=== PATIENT | female | born 1955 | race Caucasian/White ===

== ENCOUNTER 2025-02-16 09:36 | Emergency (ER) | payer BC ==
[~2025-02-16] VITALS: Ht 149.9 cm; Wt 56.7 kg
[2025-02-16] MEDS ORDERED: LIDOCAINE 5% (PATCH) 1 EA PATCH TP ONE (10:05)
[2025-02-16] MEDS ORDERED: KETOROLAC TROMETHAMINE 15 MG/ML VIAL ONE (10:05)
[2025-02-16] MEDS ORDERED: ACET-2605 PO (10:14)
[2025-02-16] MEDS ORDERED: LIDO30AD10 TP (10:14)
[2025-02-16] MEDS: LIDOCAINE 5% (PATCH) 1 EA PATCH TP STA (10:18)
[2025-02-16] MEDS: KETOROLAC TROMETHAMINE 15 MG/ML VIAL IM ONE (10:18)
[2025-02-16 12:05] VITALS: BP 143/68; TEMP 98.5; O2SAT 98
== END 2025-02-16 12:06 | disposition home or self-care (01) ==
LOC: ER 09:45
DX: S46.011A Strain of muscle(s) and tendon(s) of the rotator cuff of right shoulder, initial encounter (principal); M54.2 Cervicalgia; I10 Essential (primary) hypertension; Z79.82 Long term (current) use of aspirin; X58.XXXA Exposure to other specified factors, initial encounter; Y93.89 Activity, other specified; Y92.89 Other specified places as the place of occurrence of the external cause; Y99.8 Other external cause status
CPT/HCPCS: 99283; 96372; 73030; J1885